=== PATIENT | male | born 1955 | race Caucasian/White ===

== ENCOUNTER 2020-07-29 00:48 | Inpatient (IN) | payer OTHER ==
[2020-07-29] MEDS ORDERED: ACETAMINOPHEN 1000 MG/100 ML VIAL (NON FORMULARY) IVPB ONE (01:47)
[2020-07-29] MEDS ORDERED: ACETAMINOPHEN INJECTION 100 ML IVPB ONE (01:50)
[2020-07-29 02:08] LABS: BASO % 0.3 % (0-2.0); HEMATOCRIT 35.7 % (35.4-49); HEMOGLOBIN 12.5 GM/dL (11.7-16.9); LYMPH % 13.3 % (8-40); MCH 35.3 pg (25.7-33.7); MCHC 35.1 g/dl (32.0-35.9); MEAN CELL VOLUME 100.4 fl (80-96); MEAN PLT VOLUME 8.7 fl (7.5-11.1); MONO % 2.8 % (3.8-10.2); NEUT % 83.6 % (42.8-82.8); PLATELET COUNT 115 K/MM3 (134-434); RBC 3.55 M/mm3 (4.00-5.60); RDW 13.2 % (11.9-15.9); WHITE BLOOD COUNT 5.6 K/mm3 (4.0-10.0)
[2020-07-29] MEDS: SODIUM CHLORIDE 500 ML IV SCH (02:10)
[2020-07-29 02:17] LABS: INR 1.33 (0.83-1.09)
[2020-07-29 02:19] LABS: ACTIVATED PTT 32.3 SECONDS (25.2-36.5)
[2020-07-29 02:24] LABS: POTASSIUM 3.9 mmol/L (3.5-5.1)
[2020-07-29 02:26] LABS: ALBUMIN 3.4 g/dl (3.4-5.0); BLOOD UREA NITROGEN 11.2 mg/dL (7-18); CALCIUM 7.8 mg/dL (8.5-10.1)
[2020-07-29 02:30] LABS: CREATININE 0.9 mg/dL (0.55-1.3)
[2020-07-29 02:32] LABS: BILIRUBIN,TOTAL 0.3 mg/dL (0.2-1); TOT PROT 6.5 g/dl (6.4-8.2)
[2020-07-29] MEDS ORDERED: DEXAMETHASONE SOD PHOSPHATE 4 MG/1 ML VIAL IVPUSH ONE (05:21)
[2020-07-29] MEDS ORDERED: SODIUM CHLORIDE 0.9% 500 ML INFUS.BAG IV ONE (05:22)
[2020-07-29] MEDS ORDERED: ENOXAPARIN NA (PORCINE) 80 MG/0.8 ML DISP.SYRIN SQ SCH (06:00)
[2020-07-29] MEDS: DEXAMETHASONE SOD PHOSPHATE 4 MG/1 ML VIAL IVPUSH SCH (06:11)
[2020-07-29] MEDS ORDERED: ENOXAPARIN NA (PORCINE) 100 MG/1 ML DISP.SYRIN SQ ONE (06:13)
[2020-07-29 10:21] LABS: PH,URINE 6.5 (5.0-8.0); URINE APPEARANCE CLEAR; URINE BILIRUBIN NEGATIVE (NEGATIVE); URINE COLOR YELLOW; URINE GLUCOSE (UA) NEGATIVE (NEGATIVE); URINE KETONE NEGATIVE (NEGATIVE); URINE LEUK ESTERASE NEGATIVE (NEGATIVE); URINE NITRITE NEGATIVE (NEGATIVE); URINE PROTEIN NEGATIVE (NEGATIVE); URINE UROBILINOGEN 0.2 mg/dL (0.2-1.0)
[2020-07-29] MEDS ORDERED: ASCORBIC ACID 500 MG TABLET (FP) ONE (10:41)
[2020-07-29] MEDS ORDERED: ZINC SULFATE 220 MG CAPSULE (FP) ONE (10:41)
[2020-07-29] MEDS ORDERED: CEFTRIAXONE 1 GM/50 ML BAG ONE (10:41)
[2020-07-29] MEDS: ZINC SULFATE 220 MG CAPSULE (FP) PO SCH (10:46)
[2020-07-29] MEDS: ASCORBIC ACID 500 MG TABLET (FP) PO SCH ×2 (10:46→22:53)
[2020-07-29] MEDS: CEFTRIAXONE 1 GM in DEXTROSE 5%-WATER - 50 ML IVPB SCH (10:46)
[2020-07-29] MEDS: AZITHROMYCIN IVPB 250 MG/125 ML BAG IVPB SCH (13:17)
[2020-07-29 16:24] VITALS: BMI 28.2
[2020-07-29] MEDS ORDERED: diphenhydrAMINE HCL 25 MG CAPSULE (FP) PO PRN (20:42)
[2020-07-29] MEDS ORDERED: REMDESIVIR 200 MG in SODIUM CHLORIDE 250 ML IVPB ONE (21:00)
[2020-07-29] MEDS: METHADONE HCL 5 MG TABLET PO SCH (21:15)
[2020-07-29] MEDS: ENOXAPARIN NA (PORCINE) 100 MG/1 ML DISP.SYRIN SQ SCH (21:15)
[2020-07-30] MEDS: SODIUM CHLORIDE 500 ML IV SCH (05:35)
[2020-07-30] MEDS: DEXAMETHASONE SOD PHOSPHATE 4 MG/1 ML VIAL IVPUSH SCH (05:36)
[2020-07-30 08:41] LABS: HEMATOCRIT 38.2 % (35.4-49); HEMOGLOBIN 13.3 GM/dL (11.7-16.9); MCH 35.5 pg (25.7-33.7); MCHC 34.7 g/dl (32.0-35.9); MEAN CELL VOLUME 102.3 fl (80-96); MEAN PLT VOLUME 9.2 fl (7.5-11.1); PLATELET COUNT 139 K/MM3 (134-434); RBC 3.73 M/mm3 (4.00-5.60); RDW 13.2 % (11.9-15.9); WHITE BLOOD COUNT 9.6 K/mm3 (4.0-10.0)
[2020-07-30 08:47] LABS: POTASSIUM 4.2 mmol/L (3.5-5.1)
[2020-07-30 08:52] LABS: BLOOD UREA NITROGEN 15.4 mg/dL (7-18)
[2020-07-30 08:53] LABS: CALCIUM 8.1 mg/dL (8.5-10.1); MAGNESIUM 2.4 mg/dL (1.8-2.4)
[2020-07-30 08:56] LABS: CREATININE 0.6 mg/dL (0.55-1.3)
[2020-07-30] MEDS ORDERED: cefTRIAXone SODIUM 1 GM VIAL ONE (10:32)
[2020-07-30] MEDS ORDERED: DEXTROSE 5%-WATER - 50 ML IVPB ONE (10:32)
[2020-07-30] MEDS: ENOXAPARIN NA (PORCINE) 100 MG/1 ML DISP.SYRIN SQ SCH ×2 (10:36→21:03)
[2020-07-30] MEDS: AZITHROMYCIN IVPB 250 MG/125 ML BAG IVPB SCH (10:36)
[2020-07-30] MEDS: CEFTRIAXONE 1 GM in DEXTROSE 5%-WATER - 50 ML IVPB SCH ×2 (10:36→12:58)
[2020-07-30] MEDS: ASCORBIC ACID 500 MG TABLET (FP) PO SCH ×2 (10:37→21:02)
[2020-07-30] MEDS: ZINC SULFATE 220 MG CAPSULE (FP) PO SCH (10:37)
[2020-07-30] MEDS: METHADONE HCL 5 MG TABLET PO SCH ×3 (10:37→21:02)
[2020-07-30] MEDS ORDERED: ALPRAZolam 0.25 MG TABLET PO PRN (14:10)
[2020-07-30 16:54] LABS: ALBUMIN 3.2 g/dl (3.4-5.0)
[2020-07-30 16:58] LABS: BILIRUBIN,DIRECT 0.1 mg/dL (0.0-0.2)
[2020-07-30 17:00] LABS: BILIRUBIN,TOTAL 0.3 mg/dL (0.2-1); TOT PROT 6.1 g/dl (6.4-8.2)
[2020-07-30] MEDS: REMDESIVIR 100 MG in SODIUM CHLORIDE 250 ML IVPB SCH (21:03)
[2020-07-30] MEDS: TIZANIDINE HCL 4 MG TABLET PO SCH ×2 (21:04→21:20)
[2020-07-30] MEDS: DOXEPIN HCL 25 MG CAPSULE PO SCH (21:04)
[2020-07-30] MEDS: PRAMIPEXOLE DIHYDROCHLORIDE 0.5 MG TABLET PO SCH (21:04)
[2020-07-31] MEDS: METHADONE HCL 5 MG TABLET PO SCH ×3 (06:22→21:16)
[2020-07-31] MEDS: DEXAMETHASONE SOD PHOSPHATE 4 MG/1 ML VIAL IVPUSH SCH (06:22)
[2020-07-31 09:29] LABS: HEMATOCRIT 37.6 % (35.4-49); LYMPH % 10.4 % (8-40); MCH 35.5 pg (25.7-33.7); MCHC 34.7 g/dl (32.0-35.9); MEAN CELL VOLUME 102.2 fl (80-96); MEAN PLT VOLUME 9.3 fl (7.5-11.1); MONO % 5.6 % (3.8-10.2); PLATELET COUNT 150 K/MM3 (134-434); RBC 3.68 M/mm3 (4.00-5.60); RDW 13.4 % (11.9-15.9); WHITE BLOOD COUNT 9.8 K/mm3 (4.0-10.0)
[2020-07-31] MEDS ORDERED: MODAFINIL 200 MG PO SCH (10:00)
[2020-07-31 10:02] LABS: POTASSIUM 4.4 mmol/L (3.5-5.1)
[2020-07-31 10:08] LABS: ALBUMIN 3.1 g/dl (3.4-5.0); BLOOD UREA NITROGEN 13.9 mg/dL (7-18); MAGNESIUM 2.4 mg/dL (1.8-2.4)
[2020-07-31 10:10] LABS: CALCIUM 8.4 mg/dL (8.5-10.1); CREATININE 0.7 mg/dL (0.55-1.3)
[2020-07-31 10:12] LABS: BILIRUBIN,TOTAL 0.4 mg/dL (0.2-1); TOT PROT 6.2 g/dl (6.4-8.2)
[2020-07-31] MEDS ORDERED: PT OWN MED DRAWER 7, Y5N ONE (12:00)
[2020-07-31] MEDS: ASCORBIC ACID 500 MG TABLET (FP) PO SCH ×2 (12:03→21:16)
[2020-07-31] MEDS: ZINC SULFATE 220 MG CAPSULE (FP) PO SCH (12:03)
[2020-07-31] MEDS: ENOXAPARIN NA (PORCINE) 100 MG/1 ML DISP.SYRIN SQ SCH ×2 (12:03→21:16)
[2020-07-31] MEDS: TIZANIDINE HCL 4 MG TABLET PO SCH ×2 (12:05→21:01)
[2020-07-31] MEDS: REMDESIVIR 100 MG in SODIUM CHLORIDE 250 ML IVPB SCH (20:52)
[2020-07-31] MEDS: DOXEPIN HCL 25 MG CAPSULE PO SCH (21:16)
[2020-07-31] MEDS: PRAMIPEXOLE DIHYDROCHLORIDE 0.5 MG TABLET PO SCH (21:16)
[2020-08-01] MEDS: DEXAMETHASONE SOD PHOSPHATE 4 MG/1 ML VIAL IVPUSH SCH (05:56)
[2020-08-01] MEDS: METHADONE HCL 5 MG TABLET PO SCH ×3 (05:56→22:02)
[2020-08-01] MEDS ORDERED: DOCUSATE SODIUM 100 MG CAPSULE (FP) PO PRN ×2 (09:19→15:21)
[2020-08-01 09:43] LABS: BASO % 0.1 % (0-2.0); HEMATOCRIT 42.3 % (35.4-49); HEMOGLOBIN 14.2 GM/dL (11.7-16.9); LYMPH % 12.3 % (8-40); MCH 34.8 pg (25.7-33.7); MCHC 33.7 g/dl (32.0-35.9); MEAN CELL VOLUME 103.1 fl (80-96); MEAN PLT VOLUME 9.4 fl (7.5-11.1); MONO % 5.8 % (3.8-10.2); NEUT % 81.8 % (42.8-82.8); PLATELET COUNT 167 K/MM3 (134-434); RDW 13.5 % (11.9-15.9)
[2020-08-01 10:30] LABS: POTASSIUM 4.1 mmol/L (3.5-5.1)
[2020-08-01 10:32] LABS: ALBUMIN 3.7 g/dl (3.4-5.0); CALCIUM 8.9 mg/dL (8.5-10.1)
[2020-08-01 10:33] LABS: BLOOD UREA NITROGEN 12.9 mg/dL (7-18)
[2020-08-01 10:34] LABS: MAGNESIUM 2.3 mg/dL (1.8-2.4)
[2020-08-01 10:38] LABS: BILIRUBIN,TOTAL 0.4 mg/dL (0.2-1); CREATININE 0.9 mg/dL (0.55-1.3); TOT PROT 7.1 g/dl (6.4-8.2)
[2020-08-01] MEDS ORDERED: PT OWN MED DRAWER 7, Y5N ONE ×2 (12:05→21:39)
[2020-08-01] MEDS: TIZANIDINE HCL 4 MG TABLET PO SCH ×3 (12:13→22:23)
[2020-08-01] MEDS: ASCORBIC ACID 500 MG TABLET (FP) PO SCH ×2 (12:14→22:02)
[2020-08-01] MEDS: ZINC SULFATE 220 MG CAPSULE (FP) PO SCH (12:14)
[2020-08-01] MEDS: ENOXAPARIN NA (PORCINE) 100 MG/1 ML DISP.SYRIN SQ SCH (12:14)
[2020-08-01] MEDS: POLYETHYLENE GLYCOL 3350 119 GM BTL PO PRN ×2 (12:15→23:40)
[2020-08-01] MEDS: REMDESIVIR 100 MG in SODIUM CHLORIDE 250 ML IVPB SCH (21:54)
[2020-08-01] MEDS ORDERED: APIXABAN 5 MG TABLET PO SCH (22:00)
[2020-08-01] MEDS: APIXABAN 2.5 MG TABLET PO SCH (22:02)
[2020-08-01] MEDS: PRAMIPEXOLE DIHYDROCHLORIDE 0.5 MG TABLET PO SCH (22:03)
[2020-08-01] MEDS: DOXEPIN HCL 25 MG CAPSULE PO SCH (22:03)
[2020-08-02] MEDS: METHADONE HCL 5 MG TABLET PO SCH ×2 (06:56→14:54)
[2020-08-02] MEDS ORDERED: FAMOTIDINE 20 MG TABLET PO SCH (10:00)
[2020-08-02] MEDS ORDERED: DEXAMETHASONE 4 MG TABLET (FP) PO SCH (10:00)
[2020-08-02] MEDS: ASCORBIC ACID 500 MG TABLET (FP) PO SCH (10:16)
[2020-08-02] MEDS: TIZANIDINE HCL 4 MG TABLET PO SCH (10:17)
[2020-08-02] MEDS: ZINC SULFATE 220 MG CAPSULE (FP) PO SCH (10:19)
[2020-08-02] MEDS: APIXABAN 2.5 MG TABLET PO SCH (10:28)
[2020-08-02 10:39] LABS: EOS % 0.2 % (0-4.5); HEMATOCRIT 41.9 % (35.4-49); HEMOGLOBIN 14.5 GM/dL (11.7-16.9); LYMPH % 22.7 % (8-40); MCH 35.4 pg (25.7-33.7); MCHC 34.6 g/dl (32.0-35.9); MEAN CELL VOLUME 102.2 fl (80-96); MEAN PLT VOLUME 9.2 fl (7.5-11.1); MONO % 10.1 % (3.8-10.2); PLATELET COUNT 188 K/MM3 (134-434); RDW 13.2 % (11.9-15.9)
[2020-08-02 10:54] LABS: POTASSIUM 4.2 mmol/L (3.5-5.1)
[2020-08-02 10:59] LABS: ALBUMIN 3.4 g/dl (3.4-5.0); CALCIUM 8.7 mg/dL (8.5-10.1); MAGNESIUM 2.1 mg/dL (1.8-2.4)
[2020-08-02 11:02] LABS: BILIRUBIN,TOTAL 0.5 mg/dL (0.2-1); CREATININE 0.9 mg/dL (0.55-1.3); TOT PROT 6.7 g/dl (6.4-8.2)
[2020-08-02 18:45] VITALS: BP 106/65; PULSE 48; TEMP 97.6
== END 2020-08-02 18:35 | disposition home or self-care (01) | DRG 177 ==
LOC: JER 00:48 → JERBED 01:37 → J5S 11:11
PROVIDERS: ADMIT Hospitalist; ATTEND Nurse Practitioner Acute Care
PROC: XW033E5 Introduction of Remdesivir Anti-infective into Peripheral Vein, Percutaneous Approach, New Technology Group 5 (ICD-10-PCS; principal; 2020-07-29)
PROC: 8E0ZXY6 Isolation (ICD-10-PCS; 2020-07-29)
DX: U07.1 COVID-19 (principal); J12.82 Pneumonia due to coronavirus disease 2019; F11.20 Opioid dependence, uncomplicated; I10 Essential (primary) hypertension; D69.6 Thrombocytopenia, unspecified; Z85.05 Personal history of malignant neoplasm of liver; R09.02 Hypoxemia
CPT/HCPCS: 36415; 71046-TC-FY; 71275-TC; 80048; 80053; 80076; 81003; 82550; 82553; 82728; 83615; 83735; 84484; 85025; 85027; 85379; 85610; 85651; 85730; 86140; 86769; 87086; 87804; 87899; 93005; 93010; 94761; 99285-25; C9399; C9803; J0131; M0239; Q0239; Q0245; U0003; U0005

== ENCOUNTER 2020-12-03 17:25 | Emergency (ER) | payer OTHER ==
[2020-12-03 17:49] VITALS: TEMP 98; BMI 27.1
[2020-12-03] MEDS ORDERED: FAMOTIDINE 20 MG/50 ML IVPB 20 MG/50 ML MG IVPB ONE ×2 (19:04→19:15)
[2020-12-03] MEDS ORDERED: MAG HYDROX/AL HYDROX/SIMETH -MYLANTA- ORAL SUSPENSION PO ONE (19:04)
[2020-12-03] MEDS ORDERED: MAG HYDROX/AL HYDROX/SIMETH 30 ML UNIT-DOSE CUP ONE (19:15)
[2020-12-03 19:46] LABS: BASO % 0.6 % (0-2.0); EOS % 1.2 % (0-4.5); HEMATOCRIT 44.2 % (35.4-49); HEMOGLOBIN 15.3 GM/dL (11.7-16.9); LYMPH % 30.2 % (8-40); MCH 35.1 pg (25.7-33.7); MCHC 34.7 g/dl (32.0-35.9); MEAN CELL VOLUME 101.1 fl (80-96); MEAN PLT VOLUME 7.2 fl (7.5-11.1); MONO % 8.7 % (3.8-10.2); NEUT % 59.3 % (42.8-82.8); PLATELET COUNT 249 10^3/uL (134-434); RBC 4.37 M/mm3 (4.00-5.60); WHITE BLOOD COUNT 7.1 K/mm3 (4.0-10.0)
[2020-12-03 20:13] LABS: CHLORIDE 108 mmol/L (98-107); SODIUM 140 mmol/L (136-145)
[2020-12-03 20:15] LABS: BLOOD UREA NITROGEN 9.4 mg/dL (7-18); CALCIUM 8.9 mg/dL (8.5-10.1); LIPASE 146 U/L (73-393)
[2020-12-03 20:16] LABS: ANION GAP 5 MMOL/L (8-16); CO2 28 mmol/L (21-32); GLUCOSE,RANDOM 74 mg/dL (74-106)
[2020-12-03 20:18] LABS: CREATININE 0.8 mg/dL (0.55-1.3); SGPT/ALT 37 U/L (13-61)
[2020-12-03 20:19] LABS: SGOT/AST 26 U/L (15-37)
[2020-12-03 20:20] LABS: BILIRUBIN,TOTAL 0.4 mg/dL (0.2-1); TOT PROT 7.8 g/dl (6.4-8.2)
[2020-12-03 20:21] LABS: ALK PHOS 71 U/L (45-117)
[2020-12-03 22:49] VITALS: BP 128/74; PULSE 52
== END 2020-12-03 23:24 | disposition home or self-care (01) ==
LOC: JER 17:25
PROC: 3E033GC Introduction of Other Therapeutic Substance into Peripheral Vein, Percutaneous Approach (ICD-10-PCS; principal; 2020-12-03)
DX: R07.9 Chest pain, unspecified (principal)
CPT/HCPCS: 36415; 71046-TC-FY; 80053; 82550; 83690; 84484; 85025; 93005; 93010; 99285-25

== ENCOUNTER 2022-01-16 04:09 | Day surgery (SDC) | payer OTHER ==
[2022-01-12 16:08] VITALS: BMI 27.8
[2022-01-16] MEDS ORDERED: PROPOFOL 20 ML ONE (12:38)
[2022-01-16] MEDS ORDERED: ONDANSETRON 4 MG/2 ML VIAL ONE (12:38)
[2022-01-16] MEDS ORDERED: MIDAZOLAM HCL 2 MG/2 ML SINGLE DOSE VIAL ONE ×2 (12:38→12:46)
[2022-01-16] MEDS ORDERED: LIDOCAINE HCL/PF (2%) 40 MG/2 ML VIAL ONE (12:38)
[2022-01-16] MEDS ORDERED: DEXAMETHASONE SOD PHOSPHATE 4 MG/1 ML VIAL ONE (12:38)
[2022-01-16] MEDS ORDERED: ROPIVACAINE HCL 0.5% 30ML VIAL ONE (12:46)
[2022-01-16] MEDS ORDERED: DEXAMETHASONE SOD PHOSPHATE 10 MG/1 ML VIAL ONE (12:46)
[2022-01-16] MEDS ORDERED: ceFAZolin SODIUM 1 GM VIAL ONE (13:10)
[2022-01-16] MEDS ORDERED: ceFAZolin SODIUM 1 GM VIAL IVPB ONE (13:11)
[2022-01-16] MEDS ORDERED: LIDOCAINE HCL 1%, 10 MG/ML (20ML VIAL) NR ONE (13:22)
[2022-01-16] MEDS ORDERED: BUPIVACAINE HCL/PF 0.5% (5MG/ML) 10 ML VIAL IJ ONE (13:22)
[2022-01-16 17:11] VITALS: RESP 20; TEMP 98.8
[2022-01-16 17:27] VITALS: BP 147/77; PULSE 63
== END 2022-01-16 16:00 | disposition home or self-care (01) ==
LOC: JASU-SURG 04:09
PROVIDERS: ATTEND Orthopaedic Surgery
PROC: 01X40Z4 Transfer Ulnar Nerve to Ulnar Nerve, Open Approach (ICD-10-PCS; principal; 2022-01-16 12:30)
DX: G56.21 Lesion of ulnar nerve, right upper limb (principal)
CPT/HCPCS: J1100

== ENCOUNTER 2022-08-17 04:29 | Day surgery (SDC) | payer OTHER ==
[2022-08-16 14:49] VITALS: BMI 28.5
[2022-08-17 12:44] VITALS: TEMP 98
[2022-08-17 13:38] VITALS: BP 145/79; PULSE 59; RESP 17
== END 2022-08-17 14:50 | disposition home or self-care (01) ==
LOC: JASU-ENDO 04:29
PROVIDERS: ATTEND Internal Medicine Gastroenterology
PROC: 0DBH8ZX Excision of Cecum, Via Natural or Artificial Opening Endoscopic, Diagnostic (ICD-10-PCS; 2022-08-17)
PROC: 0DBL8ZX Excision of Transverse Colon, Via Natural or Artificial Opening Endoscopic, Diagnostic (ICD-10-PCS; principal; 2022-08-17 11:30)
DX: Z12.11 Encounter for screening for malignant neoplasm of colon (principal); D12.0 Benign neoplasm of cecum; D12.3 Benign neoplasm of transverse colon; K57.30 Diverticulosis of large intestine without perforation or abscess without bleeding; I10 Essential (primary) hypertension
CPT/HCPCS: 88305-TC